=== PATIENT | female | born 1960 | race Two or more races ===

== ENCOUNTER 2018-04-21 06:57 | Inpatient (IN) | payer OTHER ==
--- NOTE | 2018-04-21 07:26 | RADIOLOGY REPORT (SQ) ---
Clinical History : bed 8 stroke alert , Exam : Portable AP view of the chest 04/21/2018 7:11 AM CDT Comparisons : none Findings : The lungs are clear without focal consolidation or pleural effusion. The heart is enlarged. The mediastinal contours are normal in appearance. The patient is osteopenic which limits evaluation of the thoracic spine. The ribs and shoulders are grossly normal. Limited evaluation of the upper abdomen demonstrates no gross abnormalities. Impression: Cardiomegaly without overt edema or consolidation.
--- NOTE | 2018-04-21 07:29 | RADIOLOGY REPORT (SQ) ---
Clinical History : bed 8 stroke alert , Exam : CT Head without contrast 04/21/2018 7:11 AM CDT Comparisons : none. Technique : Volumetric CT acquisition was performed through the brain. Images in the axial, coronal, and sagittal planes were presented for interpretation. This exam was performed according to our departmental dose-optimization program, which includes automated exposure control, adjustment of the mA and/or kV according to patient size and/or use of iterative reconstruction technique. Radiation dose : [id number]-1043.77 Findings: The soft tissue structures of the face, scalp, and orbits are normal. The globes remain intact. The visualized portions of the paranasal sinuses and mastoid air-cells are clear. The calvarium remains intact . There is no acute intracranial hemorrhage, midline shift, or mass effect. The ventricles are normal in size and the posterior fossa structures are normal in appearance. Limited evaluation of the vasculature demonstrates no gross abnormalities. There is no CT evidence of acute infarction. Impression: No acute intracranial process.
--- NOTE | 2018-04-21 07:33 | EKG REPORT ---
SEVERITY:- ABNORMAL ECG - SINUS RHYTHM LEFT ATRIAL ABNORMALITY LEFT VENTRICULAR HYPERTROPHY PROLONGED QT INTERVAL : Confirmed by: Davide Myles MD 21-Apr-2018 07:33:37
[2018-04-21 07:46] LABS: ABSOLUTE LYMPHOCYTES (AUTO) 1.3 10^3/uL (0.5-4.7); ABSOLUTE MONOCYTES (AUTO) 0.4 10^3/uL (0.1-1.4); ABSOLUTE NEUT (AUTO) 5.8 10^3/uL (1.7-8.2); BASOPHILS % (AUTO) 0.2 % (0-2); EOSINOPHILS % (AUTO) 0.4 % (0-6); HEMATOCRIT 37.6 % (36.0-47.0); HEMOGLOBIN 12.5 g/dL (12.0-15.5); LYMPHOCYTES % (AUTO) 16.8 % (13-45); MEAN CORPUSCULAR HGB CONC 33.3 g/dL (32.0-36.0); MEAN CORPUSCULAR VOLUME 84 fl (80-97); MONOCYTES % (AUTO) 5.4 % (3-13); PLATELET COUNT 130 10^3/uL (150-450); RED BLOOD COUNT 4.47 10^6/uL (3.72-5.28); SEGMENTED NEUTROPHILS % (AUTO) 77.2 % (42-78); TOTAL CELLS COUNTED % (AUTO) 100 %; WHITE BLOOD COUNT 7.6 10^3/uL (4.0-10.5)
[2018-04-21 07:49] LABS: INTERNATIONAL RATION (INR) 1.22
[2018-04-21 07:50] LABS: PARTIAL THROMBOPLASTIN TIME 34.7 SEC (23.5-35.8)
--- NOTE | 2018-04-21 07:54 | ER Document Report ---
ED Neuro Symptoms/Deficit - General Chief Complaint: S/S of Possible Stroke Stated Complaint: SLURRED SPEECH Time Seen by Provider: 04/21/18 07:23 Notes: History obtained using CELIA and with help from daughter. The patient is a 57-year-old Divehi-speaking female, past medical history hyperthyroidism, current smoker, presents after she woke up at 4 AM and had difficulty speaking. She also had a right facial droop, numbness in her left face and right arms and legs and difficulty walking. She went to bed at 9 PM last night without any symptoms. Her body numbness and facial droop have improved, but she is still having difficulty speaking and numbnbess of her left face. She has never had these symptoms before. She denies blurry vision, chest pain, shortness of breath, nausea, vomiting, back pain, headache, head injury, fevers or focal weakness. TRAVEL OUTSIDE OF THE [place] IN LAST 30 DAYS: No - Related Data Allergies/Adverse Reactions: No Known Allergies Allergy (Unverified 04/21/18 07:07) Past Medical History - General Information source: Patient - Social History Smoking Status: Current Every Day Smoker Frequency of alcohol use: None Drug Abuse: None Family History: Reviewed & Not Pertinent Endocrine Medical History: Reports: Hx Graves' Disease, Hx Hyperthyroidism Review of Systems - Review of Systems Notes: REVIEW OF SYSTEMS: CONSTITUTIONAL: -fevers, -chills EENT: -eye pain, -difficulty swallowing, -nasal congestion CARDIOVASCULAR: -chest pain, -syncope. RESPIRATORY: -cough, -SOB GASTROINTESTINAL: -abdominal pain, -nausea, -vomiting, -diarrhea GENITOURINARY: -dysuria, -hematuria MUSCULOSKELETAL: -back pain, -neck pain SKIN: -rash or skin lesions. HEMATOLOGIC: -easy bruising or bleeding. LYMPHATIC: -swollen, enlarged glands. NEUROLOGICAL: -altered mental status or loss of consciousness, -headache, + right facial droop, +right-sided weakness, +difficulty finding her words PSYCHIATRIC: -anxiety, -depression. ALL OTHER SYSTEMS REVIEWED AND NEGATIVE. Physical Exam - Vital signs Vitals: Temp Pulse Resp BP Pulse Ox 98.8 F 88 16 119/62 96 04/21/18 07:08 04/21/18 07:08 04/21/18 07:08 04/21/18 07:08 04/21/18 07:08 - Notes Notes: PHYSICAL EXAMINATION: GENERAL: Well-appearing, well-nourished and in no acute distress. HEAD: Atraumatic, normocephalic. EYES: Pupils equal round and reactive to light, extraocular movements intact, sclera anicteric, conjunctiva are normal. ENT: nares patent, oropharynx clear without exudates. Moist mucous membranes. NECK: Normal range of motion, goiter present. LUNGS: Breath sounds clear to auscultation bilaterally and equal. No wheezes rales or rhonchi. HEART: Regular rate and rhythm without murmurs ABDOMEN: Soft, nontender, normoactive bowel sounds. No guarding, no rebound. No masses appreciated. EXTREMITIES: Normal range of motion, no pitting or edema. No cyanosis. NEUROLOGICAL: Mild right-sided facial droop, difficulty finding words, 5 out of 5 strength in all 4 extremities, no sensory changes PSYCH: Normal mood, normal affect. SKIN: Warm, Dry, normal turgor, no rashes or lesions noted. Course - Re-evaluation Re-evalutation: Patient's last known normal was 21:00 last night. She is not a TPA candidate due to presentation to ER over 3 hours from last known normal. She has also having rapidly improving symptoms. Her only symptoms are difficulty finding her words and a mild right-sided facial droop. Her NIH stroke scale is 4 and her ABCD2 score is 3. Head CT did not show any acute bleeds. Aspirin provided to patient. Pt just moved to [place] and does not have a PMD or Neurologist. She is a poor candidate for outpatient workup of her TIA. Patient requires admission for further evaluation treatment of her TIA/Stroke-like symptoms. 04/21/18 09:[address] Ames and has admitted patient to [facility] as Inpatient for further evaluation and treatment. 04/21/18 10:[address] Franklin (ENT) after Dr. Ames's concern about goiter causing difficulty speaking and swallowing. Will order US and he will consult on patient. - Vital Signs Vital signs: Temp Pulse Resp BP Pulse Ox 98.8 F 88 16 119/62 96 04/21/18 07:08 04/21/18 07:08 04/21/18 07:08 04/21/18 07:08 04/21/18 07:08 - Laboratory Result Diagrams: 04/21/18 07:34 04/21/18 07:34 Laboratory results interpreted by me: 04/21/18 04/21/18 07:22 07:34 RDW 15.0 H Plt Count 130 L POC Glucose 178 H - Diagnostic Test Radiology reviewed: Image reviewed, Reports reviewed Radiology results interpreted by me: CT Head: NAD CXR: Cardiomegaly without evidence of failure - EKG Interpretation by Me EKG shows normal: Sinus rhythm, [place], Intervals, QRS Complexes, ST-T Waves Rate: Normal ED Alteplase Inc/Exc Criteria - Date/Time patient last known well: Date/Time: 04/20/2018 21:00 - Date/Time patient arrived in ED: _: 04/20/2018 07:00 - Inclusion Criteria: 1: Patient presented to ED within 3 hours of acute ischemic stroke symptom onset ? -: No 2: Did baseline CT exclude intracranial hemorrhage and/or other risk factors? -: Yes 3: Is the age of the patient 18 years of age or greater? -: Yes : If any of the above questions are answered "NO" then stop, patient is not a candidate for Alteplase, : If all of the above questions are answered "YES" then continue with Exclusion Criteria. - Exclusion Criteria: 1: Is there evidence of intracranial hemorrhage on baseline CT? 2: Is there suspicion of subarachnoid hemorrhage (even if CT negative)? 3: Is there a history of serious head trauma, recent previous stroke or SC within 3 months? 4: Does the patient have a clinical presentation consistent with SC or post-SC pericarditis? 5: Is there history of intracranial hemorrhage? 6: On repeated measurement is Systolic BP greater than 185mmHg or Diastolic BP greater that 110 mmHg and is aggressive treatment needed to reduce blood pressure to these limits (e.g. constant infusion of an anti-hypertensive)? 7: Did the patient awake with stroke symptoms? 8: Has the patient had a lumbar puncture or an arterial puncture at a non- compressile site within 7 days? 9: With in the last 14 days did the patient have surgery or major trauma? 10: Is the patient or less than 2 weeks? 11: Was there any active bleeding or acute trauma? 12: Does the patient have intracranial neoplasm, arteriovenous malformation or aneurysm? 13: Does the patient have abnormal glucose (less than 50 or greater than 400mg/ dl)? Record glucose in Comment. 14: Patient has rapidly improving symptoms at the time Alteplase is to be Administered. 15: Does the patient have any risks for bleeding, including but not limited to: a.: Current use of Coumadin with PT greater than 15 seconds or INR greater than 1.7. b.: Current use of Pradaxa (Dabigatran). c.: Heparin administereed within the past 48 hours and PTT elevated. d.: Platelet count less than 100,000/mm. e.: Major surgery or serious trauma within 14 days. f.: Gastrointestinal or gynecological urinary bleeding within 14 days. g.: Myocardial Infarction (SC) within 3 months. : If the answer to any of the above questions is "YES" then stop, the patient is not a candidate for Alteplase. : If the answer to all of the above questions is "NO" then the patient may be eligible for the Administration of Alteplase. : If the patient is noted to have seizure activity at onset of Stroke symptoms; Consult Neurologist for further evaluation. - The patient is: -: Included and is eligible to receive Alteplase. *Initiate bed placement at higher level of care* --: No Reviewd risks & benefits of thrombolytic therapy: I have reviewed the risks and benefits of thrombolytic therapy with the patient and/or his/her family. Yes -: Excluded and not eligible to receive Alteplase for the above exclusions. --: Yes -: Excluded and not eligible to receive Alteplase for other reasons (specify in comments): - Diagnosis of TIA: -: Patient presented with transient symptoms that are now resolved and no other neurologic findings are currently present. List symptoms in comments. -: Yes -: Patient is NOT a candidate for tPA. -: Yes -: ____(put name in comment) has been consulted for admission and continued evaluation of risk factor assessment. ED NIH Stroke Scale - NIH Stroke Scale When completed:: Before Alteplase *: 1. NIH scale should be completed with appropriate accompanying assessment tools. *: 2. The NIH should reflect what the patient is capable of doing and should not be coached by the clinician. 1a. Level of Consciousness: 0=Alert;keenly responsive -: 1=Drowsy -: 2=Obtunded -: 3=Coma/unresponsive or reflex to noxious stimuli. 1a. Responses: 0 1b. Orientation Questions: a. What month is it? -: b. How old are you? -: 0=Answers both questions correctly. -: 1=Answers one question correctly or patient is intubated or has orotracheal trauma. -: 2=Answers neither question correctly. 1b. Responses: 0 1c. Response to commands: a. Open and close eyes? -: b. Vehicle Fare Collector and release hand? -: Credit is given despite weakness. Demonstration of task is permitted. Substitute command if hands cannot be used. -: 0=Performs both tasks correctly -: 1=Performs one task correctly -: 2=Performs neither task correctly 1c. Responses: 0 2. Gaze: Establish eye contact and instruct patient to "Follow my finger" -: 0=Normal -: 1=Partial gaze palsy. Gaze is abnormal in one or both eyes, but where forced deviation or total gaze paresis is not present. -: 2=Forced deviation or total gaze paresis. 2. Responses: 0 3. Visual Zhao: Sees fingers in all four quadrants. -: 0=No visual loss. -: 1=Partial hemianopsia. -: 2=Complete hemianopsia. -: 3=Bilateral hemianopsia (including Cortical blindness) 3. Responses: 0 4. Facial Movement: Instruct patient to: -: a. Show me your teeth -: b. Raise your eyebrows -: c. Close your eyes -: d. Smile -: 0=Normal symmetrical movement -: 1=Minor paralysis (flattened nasolabial fold, asymmetry on smiling). -: 2=Partial paralysis (total or near total paralysis of lower face). -: 3=Complete paralysis of upper and lower face 4. Responses: 1 5. Motor functions (left arm): Alternate sides and extend each arm with palms down (90 degrees if sitting or 45 degrees for supine). -: 0=No drift;limb holds for full 10 seconds. -: 1=Drift; limb holds but drifts down before full 10 seconds, but does not hit bed. -: 2=Some effort against gravity; limb cannot get to or maintain position. -: 3=No effort against gravity; limb falls. -: 4=No movement. -: UN=Amputation, joint fusion, explain in comments. 5. Responses (left arm): 0 5. Motor Functions (right arm): Alternate sides and extend each arm with palms down (90 degrees if sitting or 45 degrees for supine). -: 0=No drift;limb holds for full 10 seconds. -: 1=Drift; limb holds but drifts down before full 10 seconds, but does not hit bed. -: 2=Some effort against gravity; limb cannot get to or maintain position. -: 3=No effort against gravity; limb falls. -: 4=No movement. -: UN=Amputation, joint fusion, explain in comments. 5. Responses (right arm): 0 6. Motor Functions (left leg): With patient lying supine, alternate sides and extend each leg (30 degrees always while supine). -: 0=No drift, leg holds position for full 5 seconds -: 1=Drift; leg falls before full 5 seconds but does not hit bed. -: 2=Some effort against gravity, leg falls to bed but some effort against gravity. -: 3=No effort against gravity, leg falls to bed immediately. -: 4=No movement. -: UN=Amputation, joint fusion; explain in comments. 6. Responses (left leg): 0 6. Motor Functions (right leg): With patient lying supine, alternate sides and extend each leg (30 degrees always while supine). -: 0=No drift, leg holds position for full 5 seconds -: 1=Drift; leg falls before full 5 seconds but does not hit bed. -: 2=Some effort against gravity, leg falls to bed but some effort against gravity. -: 3=No effort against gravity, leg falls to bed immediately. -: 4=No movement. -: UN=Amputation, joint fusion; explain in comments. 6. Responses (right leg): 0 7. Limb Ataxia: With eyes open instruct patient to: -: a. "Touch your finger to your nose". -: b. "Touch your heel to your rider" -: 0=Absent -: 1=Present in one limb. -: 2=Present in two limbs. -: UN=Amputation or joint fusion; explain in comments. 7. Responses: 0 8. Sensory: Test sensation using pinprick or noxious stimuli. Test as many body parts as possible. -: 0=Normal;no sensory loss -: 1=Mile to moderate sensory loss (patient feels pin prick but is less sharp on affected side). -: 2=Severe or total sensory loss. 8. Responses: 1 9. Best Language: Instruct patient to: -: a. "Describe what you see in this picture." -: b. "Name the items in this picture." -: c. "Read these sentences." -: 0=No aphasia, normal -: 1=Mild to moderate aphasia. -: 2=Severe aphasia -: 3=Mute, global aphasia, no usable speech or auditory comprehension. 9. Responses: 1 10. Articulation, Dysarthia: Instruct patient to: -: "Read these words" or "Repeat these words" -: 0=Normal -: 1=Mild to moderate; patient may slur some words but can be understood without difficulty. -: 2=Severe; patients speech so slurred as to be unintelligible in the absence of dysphasia. -: UN=Intubated or other physical barrier, explain in comments. 10. Responses: 1 11. Extinction or inattention: 0=No abnormality -: 1= Visual, tactile, auditory, spatial, or personal inattention or extinction to bilateral simulation in one or the sensory modalities. -: 2=Profound darien-inattention or darien-inattention to more than one modality; does not recognize own hand. 11. Responses: 0 Total Score: 4 Discharge - Discharge Clinical Impression: Facial droop, Word finding difficulty, Numbness of extremity TIA (transient ischemic attack) Qualifiers: Transient cerebral ischemia type: unspecified Qualified Code(s): G45.9 - Transient cerebral ischemic attack, unspecified Condition: Stable Disposition: ADMITTED INPATIENT Admitting Provider: Hospitalist - [facility] Unit Admitted: [facility]
[2018-04-21] MEDS ORDERED: ASPIRIN 325 MG TABLET PO ONE (07:59)
[2018-04-21 08:15] LABS: ALANINE AMINOTRANSFERASE 23 U/L (9-52); ALBUMIN 3.7 g/dL (3.5-5.0); ALKALINE PHOSPHATASE 198 U/L (38-126); ANION GAP 11 (5-19); ASPARTATE AMINO TRANSFERASE 24 U/L (14-36); BILIRUBIN,DIRECT 0.4 mg/dL (0.0-0.4); BILIRUBIN,TOTAL 1.3 mg/dL (0.2-1.3); BLOOD UREA NITROGEN 13 mg/dL (7-20); CALCIUM 8.9 mg/dL (8.4-10.2); CARBON DIOXIDE 23 mmol/L (22-30); CHLORIDE 107 mmol/L (98-107); CREATINE KINASE 109 U/L (30-135); GLUCOSE 154 mg/dL (75-110); POTASSIUM 3.6 mmol/L (3.6-5.0); SODIUM 140.6 mmol/L (137-145); TOTAL PROTEIN 7.1 g/dL (6.3-8.2)
[2018-04-21 08:26] LABS: CREATINE KINASE MB 1.17 ng/mL (<4.55); TROPONIN I < 0.012 ng/mL
[2018-04-21 08:32] LABS: FREE T3 7.32 pg/mL (2.77-5.27); FREE T4 (FREE THYROXINE) 2.61 ng/dL (0.78-2.19)
[2018-04-21 08:50] LABS: THYROID STIMULATING HORMONE < 0.01 uIU/mL (0.47-4.68)
[2018-04-21] MEDS ORDERED: ASPIRIN 81 MG TABLET, ENT COATED PO SCH (10:00)
--- NOTE | 2018-04-21 11:36 | RADIOLOGY REPORT (SQ) ---
EXAM DESCRIPTION: MRI HEAD WITHOUT COMPLETED DATE/TIME: 04/21/2018 11:19 am REASON FOR STUDY: Acute CVA COMPARISON: CT brain 04/21/2018 TECHNIQUE: Multiplanar imaging includes non-contrasted T1, T2, FLAIR, and diffusion with ADC map seq uences. Images stored on PACS. LIMITATIONS: None. FINDINGS: ANATOMY: No developmental anomalies. Normal vascular flow voids. Pituitary fossa demonstr ates an empty sella, an anatomic variant. CSF SPACES: Normal in size and contour. No hemorrhage. CEREBRUM: Diffusion-weighted images are positive for a small nonhemorrhagic infarct along the left in sular cortex and perisylvian cortex. Elsewhere, there is increased FLAIR/ T2 signal in the bifrontal and biparietal subcortical white zuri er, likely gliosis along perivascular spaces. Minimal small vessel disease is also possible. Demyel inating disease is considered less likely. No acute intracranial hemorrhage, mass effect, or midline shift. POSTERIOR FOSSA: No signal alteration. No hemorrhage. No edema, masses or mass effect. Internal austyn tory canals, cerebello-pontine angles, mastoids normal. DIFFUSION IMAGING: Positive for a small nonhemorrhagic infarct along the left insular cortex. ORBITS: No masses. Globes normal. PARANASAL SINUSES: No fluid levels. Mucosa normal. OTHER: No other significant finding. IMPRESSION: Acute small nonhemorrhagic infarct along the left insular cortex EVIDENCE OF ACUTE STROKE: Yes TECHNICAL DOCUMENTATION: JOB ID: [id number]- All Rights Reserved Reading location - IP/workstation name: [facility]
--- NOTE | 2018-04-21 13:02 | RADIOLOGY REPORT (SQ) ---
EXAM DESCRIPTION: U/S THYROID/SFT TISS HD NECK COMPLETED DATE/TIME: 04/21/2018 12:10 pm REASON FOR STUDY: large goiter, difficulty swallowing COMPARISON: None. TECHNIQUE: Dynamic and static sandoval-scale images acquired of the thyroid gland. Selected additional c olor/power Doppler images recorded. All images stored to PACS. LIMITATIONS: None. FINDINGS: The thyroid is diffusely enlarged and very heterogeneous from multinodular goiter, right l obe measures 8.5 cm in greatest craniocaudad length, left lobe 6.4 cm in greatest craniocaudad length . The thyroid isthmus is diffusely thickened at 3 cm. IMPRESSION: Diffusely enlarged heterogeneous thyroid gland with multiple nodules from goiter. TECHNICAL DOCUMENTATION: JOB ID: [id number] [employer]- All Rights Reserved Reading location - IP/workstation name: [email or web address]
--- NOTE | 2018-04-21 13:18 | Progress Note ---
Provider Note Provider Note: This 57-year-old female, Liberian-speaking, presents to the emergency room with complaints of difficulty speaking as well as a right facial droop and numbness in her left face and right arms and legs stated at about 4 AM this morning. She also complained of difficulty she ambulating. Was out of the window for any TPA by the time she got to the emergency room. By the time I saw her the symptoms of apparently improved. CT scan of the brain done was negative. Patient does have a huge goiter which is apparently chronic. She is on methimazole. She clearly needs further intervention and may be even needs surgical intervention to be done and so an ENT consult has been requested although this finding is related by the way. MRI of the brain done reveals acute small nonhemorrhagic infarct along the left insular cortex.
--- NOTE | 2018-04-21 13:50 | PDOC H&P ---
History of Present Illness Admission Date/PCP: 04/21/18 09:41 Patient complains of: Numbness and tingling x 1 day History of Present Illness: BARBY EUGENE is a 57 year old female English-speaking female, past medical history hyperthyroidism, current smoker, presents after she woke up at 4 AM and had difficulty speaking. She also had a right facial droop, numbness in her left face and right arms and legs and difficulty walking. She went to bed at 9 PM last night without any symptoms. Her body numbness and facial droop have improved, but she is still having difficulty speaking and numbnbess of her left face. She has never had these symptoms before. She denies blurry vision, chest pain, shortness of breath, nausea, vomiting, back pain, headache, head injury, fevers or focal weakness. Past Medical History Endocrine Medical History: Reports: Hyperthyroidism Social History Smoking Status: Current Every Day Smoker Family History Family History: Reviewed & Not Pertinent Parental Family History Reviewed: No Children Family History Reviewed: No Sibling(s) Family History Reviewed.: No Medication/Allergy Home Medications: RX: Methimazole [Tapazole] 20 mg PO Q8 04/21/18 Aspirin [Aspirin 81 mg Chewable Tablet] 81 mg PO DAILY #1 pkg 04/22/18 RX: Atorvastatin Calcium [Lipitor 20 mg Tablet] 20 mg PO QHS #30 tablet Allergies/Adverse Reactions: No Known Allergies Allergy (Unverified 04/21/18 07:07) Review of Systems All systems: reviewed and no additional remarkable complaints except as stated Eyes: PRESENT: as per HPI Neurological: PRESENT: abnormal speech, focal weakness, tingling Endocrine: PRESENT: as per HPI Physical Exam Vital Signs: Temp Pulse Resp BP Pulse Ox 98.8 F 86 20 102/66 97 04/21/18 07:08 04/21/18 13:15 04/21/18 13:15 04/21/18 13:15 04/21/18 13:15 General appearance: PRESENT: no acute distress, well-developed, well-nourished Head exam: PRESENT: atraumatic Eye exam: PRESENT: other - no exophthalmos Mouth exam: ABSENT: tongue midline - mild deviation to Right Neck exam: PRESENT: thyromegaly - non tender. ABSENT: carotid bruit, JVD, lymphadenopathy Respiratory exam: PRESENT: clear to auscultation william. ABSENT: rales, rhonchi, wheezes Cardiovascular exam: PRESENT: bradycardia Pulses: PRESENT: normal carotid pulses GI/Abdominal exam: PRESENT: normal bowel sounds, soft. ABSENT: distended, guarding, mass, organolmegaly, rebound, tenderness Rectal exam: PRESENT: deferred Extremities exam: PRESENT: full ROM. ABSENT: calf tenderness, clubbing, pedal edema Musculoskeletal exam: PRESENT: ambulatory, full ROM, normal inspection Neurological exam: PRESENT: alert, awake, oriented to person, oriented to place , oriented to situation, motor sensory deficit - Left sided weakness 3/5 Skin exam: PRESENT: dry, intact, warm. ABSENT: cyanosis, rash Results Laboratory Results: 04/21/18 12:10 Troponin I < 0.012 Impressions: Head MRI 04/21/18 00:00 IMPRESSION: Acute small nonhemorrhagic infarct along the left insular cortex EVIDENCE OF ACUTE STROKE: Yes Thyroid Ultrasound 04/21/18 10:34 IMPRESSION: Diffusely enlarged heterogeneous thyroid gland with multiple nodules from goiter. Assessment & Plan - Diagnosis (1) CVA (cerebral vascular accident) Qualifiers: CVA mechanism: thrombosis Laterality of affected vessel: left Is this a current diagnosis for this admission?: Yes (2) Hyperthyroidism Is this a current diagnosis for this admission?: Yes (3) Numbness of extremity Is this a current diagnosis for this admission?: Yes - Time Time Spent: 50 to 70 Minutes Anticipated discharge: Home Within: within 72 hours - Inpatient Certification Based on my medical assessment, after consideration of the patient's comorbidities, presenting symptoms, or acuity I expect that the services needed warrant INPATIENT care.: Yes Medical Necessity: Risk of Complication if Not Cared For in Hospital
[2018-04-21] MEDS: FAMOTIDINE 20 MG TABLET PO SCH ×2 (17:13→22:27)
[2018-04-21] MEDS ORDERED: IPRATROPIUM/ALBUTEROL 0.5-2.5 MG/3 ML AMPUL NEB PRN (17:35)
[2018-04-21] MEDS ORDERED: MAGNESIUM HYDROXIDE SUSP 30 ML UDCUP PO PRN (17:35)
[2018-04-21] MEDS ORDERED: ACETAMINOPHEN 325 MG TABLET PO PRN (17:35)
[2018-04-21] MEDS ORDERED: ENOXAPARIN SODIUM INJ 40 MG/0.4 ML DISP.SYRIN SUBCUT ONE (19:00)
[2018-04-21] MEDS ORDERED: METHIMAZOLE 20 MG PO SCH (22:00)
[2018-04-21] MEDS ORDERED: ATORVASTATIN CALCIUM 20 MG TABLET PO SCH (22:00)
[2018-04-21] MEDS: METHIMAZOLE 5 MG TABLET PO SCH (22:27)
[2018-04-22] MEDS: METHIMAZOLE 5 MG TABLET PO SCH ×2 (05:17→13:43)
[2018-04-22 09:36] LABS: CHOLESTEROL 112.21 mg/dL (0-200); TRIGLYCERIDES 68 mg/dL (<150)
[2018-04-22 09:46] LABS: DIRECT LDL 64 mg/dL (<100)
[2018-04-22] MEDS ORDERED: ENOXAPARIN SODIUM INJ 40 MG/0.4 ML DISP.SYRIN SUBCUT SCH (10:00)
[2018-04-22] MEDS ORDERED: DOCUSATE SODIUM 100 MG CAPSULE PO SCH (10:00)
[2018-04-22] MEDS: FAMOTIDINE 20 MG TABLET PO SCH (10:40)
--- NOTE | 2018-04-22 12:18 | RADIOLOGY REPORT (SQ) ---
EXAM DESCRIPTION: CAROTID DOPPLER COMPLETED DATE/TIME: 04/22/2018 12:08 pm REASON FOR STUDY: CVA COMPARISON: MRI brain 04/21/2018 CT brain 04/21/2018 TECHNIQUE: Grayscale ultrasound, Doppler velocity and spectra, and color Doppler images acquired of the extra-cranial carotid and vertebral arteries. Images stored on PACS. LIMITATIONS: None. FINDINGS: RIGHT CAROTID CCA Velocities: Within normal limits. ICA Velocities Peak systolic 0.58 m/s. End diastolic 0.17 m/s. Proximal ICA/CCA peak systolic ratio normal. Spectra normal. No significant plaque. LEFT CAROTID CCA Velocities: Within normal limits. ICA Velocities Peak systolic 0.83 m/s. End diastolic 0.18 m/s. Proximal ICA/CCA peak systolic ratio normal. Spectra normal. No significant plaque. VERTEBRAL ARTERIES: Antegrade flow. Normal waveforms. SUBCLAVIAN ARTERIES: Not evaluated OTHER: No other significant finding. IMPRESSION: NO HEMODYNAMICALLY SIGNIFICANT STENOSIS. COMMENT: Quality ID #[id number]: Velocity criteria are extrapolated from the diameter data as defined by t he Society of Radiologists in Ultrasound Consensus Conference. Radiology 2003: 229; 340-346. TECHNICAL DOCUMENTATION: JOB ID: [id number] [employer]- All Rights Reserved Reading location - IP/workstation name: [facility]
--- NOTE | 2018-04-22 17:31 | PDOC DISCHARGE SUMMARY ---
General - Admit/Disc Date/PCP Admission Date/Primary Care Provider: 04/21/18 09:41 Discharge Date: 04/22/18 - Discharge Diagnosis (1) CVA (cerebral vascular accident) Is this a current diagnosis for this admission?: Yes (2) Hyperthyroidism Is this a current diagnosis for this admission?: Yes (3) Numbness of extremity Is this a current diagnosis for this admission?: Yes (4) Multinodular goiter Is this a current diagnosis for this admission?: Yes - Additional Information Resuscitation Status: Full Code Discharge Diet: Cardiac Discharge Activity: Activity As Tolerated Prescriptions: Atorvastatin Calcium [Lipitor 20 mg Tablet] 20 mg PO QHS #30 tablet Aspirin [Aspirin 81 mg Chewable Tablet] 81 mg PO DAILY #1 pkg Home Medications: Methimazole [Tapazole] 20 mg PO Q8 04/21/18 Aspirin [Aspirin 81 mg Chewable Tablet] 81 mg PO DAILY #1 pkg 04/22/18 Atorvastatin Calcium [Lipitor 20 mg Tablet] 20 mg PO QHS #30 tablet 04/22/18 History of Present Illness History of Present Illness: BARBY EUGENE is a 57 year old female admitted with numbness tingling and difficulty with her speech. Initial CT scan of the brain done revealed no abnormalities but subsequent MRI of the brain revealed an acute small nonhemorrhagic infarct along the left insular cortex Hospital Course Hospital Course: Patient was admitted with numbness tingling and difficulty with her speech. Initial CT scan of the brain done revealed no abnormalities but subsequent MRI of the brain revealed an acute small nonhemorrhagic infarct along the left insular cortex. Patient symptoms of mostly all resolved by now. Her blood pressure was stable throughout her hospital course. Patient also had a negative carotid Doppler studies done. Echocardiogram was done and the result although not officially on 5 it was discussed with Dr. Gomez who suggested that patient does have significant moderate mitral regurgitation and she may have had a trial fibrillation. Given the fact that patient also has poorly controlled hypothyroidism this is certainly a possibility. Although there is no evidence of any arrhythmia on telemetry monitoring arrangement has been made for patient to follow-up with Dr. Batista for event monitor and for further evaluation as outpatient. Due to patient's extensive multinodular goiter ENT surgeon was also consulted. Given the patient has just had an acute stroke and no acute thyroid illness was decided the patient will follow up with Dr. Godfrey, as outpatient for further management of multinodular goiter. 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 Patient has been started on low-dose aspirin and statin. She is to follow-up as suggested as outpatient Physical Exam Vital Signs: Temp Pulse Resp BP Pulse Ox 98.5 F 83 12 97/51 L 95 04/22/18 15:33 04/22/18 16:00 04/22/18 16:00 04/22/18 16:00 04/22/18 16:00 Intake & Output 04/21/18 04/22/18 04/23/18 06:59 06:59 06:59 Intake Total 205 118 Output Total 400 Balance -195 118 Weight 62.6 kg General appearance: PRESENT: no acute distress, well-developed, well-nourished Head exam: PRESENT: atraumatic, normocephalic Eye exam: PRESENT: conjunctiva pink, EOMI, PERRLA. ABSENT: scleral icterus Ear exam: PRESENT: normal external ear exam Mouth exam: PRESENT: moist, tongue midline Neck exam: PRESENT: thyromegaly - huge goiter. ABSENT: carotid bruit, JVD, lymphadenopathy Respiratory exam: PRESENT: clear to auscultation william. ABSENT: rales, rhonchi, wheezes Cardiovascular exam: PRESENT: RRR. ABSENT: diastolic murmur, rubs, systolic murmur Pulses: PRESENT: normal dorsalis pedis pul Vascular exam: PRESENT: normal capillary refill GI/Abdominal exam: PRESENT: normal bowel sounds, soft. ABSENT: distended, guarding, mass, organolmegaly, rebound, tenderness Rectal exam: PRESENT: deferred Extremities exam: PRESENT: full ROM. ABSENT: calf tenderness, clubbing, pedal edema Neurological exam: PRESENT: alert, awake, oriented to person, oriented to place , oriented to time, oriented to situation, CN II-XII grossly intact, motor sensory deficit - strength 4/5 LUE Psychiatric exam: PRESENT: appropriate affect, normal mood. ABSENT: homicidal ideation, suicidal ideation Skin exam: PRESENT: dry, intact, warm. ABSENT: cyanosis, rash Results Laboratory Results: 04/22/18 00:27 Triglycerides 68 Cholesterol 112.21 LDL Cholesterol Direct 64 VLDL Cholesterol 14.0 HDL Cholesterol 35 L 04/21/18 04/21/18 04/22/18 12:10 18:22 00:27 Troponin I < 0.012 < 0.012 < 0.012 Impressions: Head MRI 04/21/18 00:00 IMPRESSION: Acute small nonhemorrhagic infarct along the left insular cortex EVIDENCE OF ACUTE STROKE: Yes Thyroid Ultrasound 04/21/18 10:34 IMPRESSION: Diffusely enlarged heterogeneous thyroid gland with multiple nodules from goiter. Carotid Doppler Study 04/22/18 00:00 IMPRESSION: NO HEMODYNAMICALLY SIGNIFICANT STENOSIS. Qualifiers - * PATIENT BEING DISCHARGED WITH ANY OF THE FOLLOWING DIAGNOSIS: Stroke Stroke Pt being discharged on Anti-thrombolytic therapy?: Yes Stroke Pt being discharged on Anti-coagulation therapy?: No Reason(s) for not prescribing Anti-coagulation therapy:: Not indicated Stroke Pt being discharged on Statins?: Yes Plan Time Spent: Greater than 30 Minutes
[2018-04-22 17:58] VITALS: BP 119/62
--- NOTE | 2018-04-24 12:44 | XCELERA REPORT ---
[address] [address] Transthoracic Echocardiogram Report Name: BARBY EUGENE Age: 57 yrs Gender: Female : 1960 Patient Status: Inpatient Patient Location: [address] [place] [address] Study Date: 04/22/2018 09:38 AM Procedure: A two-dimensional transthoracic echocardiogram with color flow and Doppler was performed. Study Quality: Fair. Reason For Study: Acute CVA History: CVA. Ordering Physician: SHIRA MERCER Performed By: Zeynep Doherty Interpretation Summary There is no obvious cardiac source of embolus noted on this transthoracic echocardiogram. Follow-up with a [facility] is suggested if cardiac source is still suspected. The left ventricle is normal in size. There is normal left ventricular wall thickness. LV EF is 60% Left ventricular systolic function is normal. Doppler measurements suggest normal left ventricular diastolic function The left ventricular wall motion is normal. There is no thrombus. There is no ventricular septal defect visualized. The right ventricle is grossly normal size. The right ventricle is not well visualized secondary to technical limitations The left atrium is moderately dilated. The interatrial septum is intact with no evidence for an atrial septal defect. There is no evidence of mitral valve prolapse. There is no vegetation seen on the mitral valve. There is no mitral valve stenosis. There is no aortic valve stenosis There is no LVOT obstruction. There is a trace amount of aortic regurgitation There is no tricuspid stenosis. There is a mild to moderate amount of tricuspid regurgitation There is moderate pulmonary hypertension by echo RVSP is 53 mm of Hg , with RA mean of 10. There is no pericardial effusion. There is no obvious cardiac source of embolus noted on this transthoracic echocardiogram. Follow-up with a [facility] is suggested if cardiac source is still suspected MMode/2D Measurements & Calculations RVDd: 3.3 cm LVIDd: 5.6 cm FS: 27.3 % Ao root diam: IVSd: 0.92 cm LVIDs: 4.1 cm EDV(Teich): 3.0 cm LVPWd: 1.3 cm 153.3 ml Ao root area: ESV(Teich): 7.0 cm2 72.8 ml EF(Teich): 52.6 % LVOT diam: EDV(MOD-sp4): SV(MOD-sp4): 1.9 cm 99.8 ml 40.2 ml LVOT area: ESV(MOD-sp4): 2.9 cm2 59.6 ml EF(MOD-sp4): 40.2 % Doppler Measurements & Calculations MV E max alexandria: MV dec slope: Ao V2 max: AI max alexandria: 120.2 cm/sec 721.8 cm/sec2 140.4 cm/sec 258.7 cm/sec MV A max alexandria: MV dec time: Ao max P.9 mmHgAI max P.3 cm/sec 0.17 sec MARY(V,D): 1.7 cm2 26.8 mmHg MV E/A: 4.0 AI dec slope: 222.3 cm/sec2 AI P1/2t: 340.9 msec LV V1 max PG: PA V2 max: PI end-d alexandria: TR max alexandria: 2.8 mmHg 93.3 cm/sec 98.1 cm/sec 294.3 cm/sec LV V1 max: PA max P.5 mmHgPI max alexandria: TR max P.2 cm/sec 191.4 cm/sec 35.2 mmHg PI max P.7 mmHg PI dec slope: 214.3 cm/sec2 Left Ventricle The left ventricle is normal in size. There is normal left ventricular wall thickness. LV EF is 60%. Left ventricular systolic function is normal. Doppler measurements suggest normal left ventricular diastolic function. The left ventricular wall motion is normal. There is no thrombus. There is no ventricular septal defect visualized. Right Ventricle The right ventricle is grossly normal size. The right ventricle is not well visualized secondary to technical limitations. Atria The right atrium is normal. The left atrium is moderately dilated. The interatrial septum is intact with no evidence for an atrial septal defect. Mitral Valve There is no evidence of mitral valve prolapse. There is no vegetation seen on the mitral valve. There is no mitral valve stenosis. There is a moderate amount of mitral regurgitation. Aortic Valve There is no aortic valvular vegetation. There is no aortic valve stenosis. There is no LVOT obstruction. There is a trace amount of aortic regurgitation. Tricuspid Valve There is no tricuspid stenosis. There is a mild to moderate amount of tricuspid regurgitation. There is moderate pulmonary hypertension by echo. RVSP is 53 mm of Hg , with RA mean of 10. Pulmonic Valve There is no pulmonic valvular stenosis. There is a trace amount of pulmonic regurgitation. Great Vessels The aortic root is normal size. Effusions There is no pericardial effusion. : SHIRA MERCER > Leslye Batista
== END 2018-04-22 18:28 | disposition home or self-care (01) | DRG 66 ==
LOC: ER 06:57 → EH 09:41 → 3W 15:38
PROVIDERS: ADMIT Internal Medicine; ATTEND Internal Medicine
PROC: 3E0F73Z Introduction of Anti-inflammatory into Respiratory Tract, Via Natural or Artificial Opening (ICD-10-PCS; principal; 2018-04-22)
DX: I63.9 Cerebral infarction, unspecified (principal); R20.0 Anesthesia of skin; E05.20 Thyrotoxicosis with toxic multinodular goiter without thyrotoxic crisis or storm; I34.0 Nonrheumatic mitral (valve) insufficiency; F17.210 Nicotine dependence, cigarettes, uncomplicated; I69.392 Facial weakness following cerebral infarction; R00.1 Bradycardia, unspecified; Z79.899 Other long term (current) drug therapy
CPT/HCPCS: 36415; 70450; 70551; 71045; 76536; 80053; 80061; 82550; 82553; 82962; 83036; 84439; 84443; 84481; 84484; 85025; 85610; 85730; 93005; 93010; 93306; 93880; 99285; J1650

== ENCOUNTER 2020-06-24 17:41 | Emergency (ER) | payer SELFPAY ==
--- NOTE | 2020-06-24 19:00 | ER Document Report ---
ED General - General Stated Complaint: COUGH,SHORTNESS OF BREATH Time Seen by Provider: 06/24/20 18:47 Primary Care Provider: HUGO REAL MD [COMMUNITY BASED STAFF] - Follow up as needed Mode of Arrival: Ambulatory Information source: Patient Notes: 60-year-old female past medical history significant for hypothyroidism here taking care of her granddaughter while her son has been deployed presents emergency room complaining of a cough with shortness of breath general body aches and fever for the past 3 days. Granddaughter with similar symptoms. Has been taking ibuprofen with minimal relief. Eating and drinking normally. Denies any recent travel. Denies any chest pain. Denies any COVID-19 exposure. TRAVEL OUTSIDE OF THE [place] IN LAST 30 DAYS: No - Related Data Allergies/Adverse Reactions: No Known Allergies Allergy (Unverified 04/21/18 07:07) Past Medical History - General Information source: Patient - Social History Smoking Status: Current Every Day Smoker Frequency of alcohol use: None Drug Abuse: None Family History: Reviewed & Not Pertinent Endocrine Medical History: Reports: Hx Graves' Disease, Hx Hyperthyroidism Renal/ Medical History: Denies: Hx Peritoneal Dialysis Psychiatric Medical History: Reports: Hx Depression Review of Systems - Review of Systems Constitutional: No symptoms reported EENT: Throat pain Cardiovascular: No symptoms reported Respiratory: Cough, Short of breath Gastrointestinal: No symptoms reported Genitourinary: No symptoms reported Musculoskeletal: Muscle pain Skin: No symptoms reported Neurological/Psychological: No symptoms reported -: Yes All other systems reviewed and negative Physical Exam - Vital signs Vitals: Temp Pulse Resp BP Pulse Ox 99.7 F 102 H 16 131/71 H 99 06/24/20 18:25 06/24/20 18:25 06/24/20 18:25 06/24/20 18:25 06/24/20 18:25 - General General appearance: Appears well, Alert In distress: Mild - HEENT Head: Normocephalic, Atraumatic Eyes: Normal Extraocular movements intact: Yes Pupils: PERRL Ears: Normal External canal: Normal Tympanic membrane: Normal Sinus: Normal Pharynx: Erythema Neck: Normal. No: Posterior cervical chain, Kernig's, Lymphadenopathy - Respiratory Respiratory status: No respiratory distress Chest status: Nontender Breath sounds: Rales. No: Rhonchi, Wheezing Chest palpation: Normal - Cardiovascular Rhythm: Tachycardia Heart sounds: Normal auscultation Murmur: No - Neurological Neuro grossly intact: Yes Cognition: Normal Orientation: AAOx4 Willard Coma Scale Eye Opening: Spontaneous Willard Coma Scale Verbal: Oriented Yolande Coma Scale Motor: Obeys Commands Yolande Coma Scale Total: 15 Speech: Normal Motor strength normal: LUE, RUE, LLE, RLE Sensory: Normal - Skin Skin Temperature: Warm Skin Moisture: Dry Skin Color: Normal Course - Re-evaluation Re-evalutation: 06/24/20 21:25 Patient is resting comfortably she is afebrile. She is nontoxic-appearing, reviewed all test results with patient. Discussed viral versus bacterial infection. Granddaughter also seen at the same time who tested positive for strep. Discussed with grandmother that we could go ahead and treat her with antibiotics as a precaution as she is the one caring for the grandchild. Outpatient follow-up with a primary care physician if not improving in 2 to 3 days. On-call physician was provided. Patient was given strict return to the emergency room guidelines. Return for any new or worsening symptoms. All questions were answered. Patient verbalized understanding and agrees with plan of care. 06/24/20 21:54 - Vital Signs Vital signs: Temp Pulse Resp BP Pulse Ox 99.7 F 102 H 16 131/71 H 99 06/24/20 18:25 06/24/20 18:25 06/24/20 18:25 06/24/20 18:25 06/24/20 18:25 - Diagnostic Test Radiology reviewed: Reports reviewed - EKG Interpretation by Me EKG shows normal: Sinus rhythm Rate: Normal Rhythm: NSR Additional EKG results interpreted by me: 06/24/20 18:59 EKG was interpreted by ED physician Dr. Guillermo No acute STEMI Normal sinus rhythm Rate [address]-T wave abnormalities Discharge - Discharge Clinical Impression: Body aches, Cough Acute pharyngitis Qualifiers: Pharyngitis/tonsillitis etiology: unspecified etiology Qualified Code(s): J02.9 - Acute pharyngitis, unspecified Condition: Stable Disposition: HOME, SELF-CARE Instructions: Bronchitis ([facility]), Sore Throat ([facility]) Additional Instructions: Rest, push fluids, take medications as prescribed. Outpatient follow-up with a primary care physician if not improving in 2 to 3 days. Return to emergency room for any new or worsening symptoms. Prescriptions: Amoxicillin 1 tab PO TID #30 tab Referrals: HUGO REAL MD [COMMUNITY BASED STAFF] - Follow up as needed
[2020-06-24 20:24] LABS: A TYPE INFLUENZA AG NEGATIVE (NEGATIVE); B INFLUENZA AG NEGATIVE (NEGATIVE)
--- NOTE | 2020-06-24 20:32 | RADIOLOGY REPORT (SQ) ---
EXAM DESCRIPTION: X-RAY CHEST- One View CLINICAL HISTORY: Cough COMPARISON: 04/21/18 TECHNIQUE: Single view of the chest. FINDINGS: There are no discrete air space infiltrates, pneumothoraces or pleural effusions. The pulmonary vascularity is normal. The cardiomediastinal silhouette is enlarged, similar to prior exam. Osseus structures are stable. IMPRESSION: There are no acute lung parenchymal findings. Stable enlargement of the cardiac silhouette.
[2020-06-24 21:58] VITALS: BP 144/95
== END 2020-06-24 21:58 | disposition home or self-care (01) ==
LOC: ER 17:41
DX: R05 Cough (principal); J02.9 Acute pharyngitis, unspecified; R50.9 Fever, unspecified; M79.10 Myalgia, unspecified site; F17.200 Nicotine dependence, unspecified, uncomplicated
CPT/HCPCS: 71045; 87070; 87804; 87880; 99283; 99284